=== PATIENT | female | born 1970 | race Two or more races ===

== ENCOUNTER 2024-09-27 09:10 | Outpatient (RCR) | payer MEDICAID, SELFPAY ==
--- NOTE | 2024-09-27 09:38 | PT.OIERPT ---
PT OP Initial Eval Patient Information Outpatient Physical Therapy Treatment Date: 09/27/24 Visit Reasons: back and leg pain Medical Diagnosis: M76.31 Treatment Dx #1: R LE pain Start of Care: 09/27/24 Date of Onset: 1 month ago Smoking Status Smoking Status: Never smoker Initial Assessment Subjective: Pt is 54 yr old ukrainian speaking female who reports R LE pain since being in the same position while gardening. She points to he anterior thigh as site of pain. The pain is less now but it hurts to walk>15 mins and lifting heavy things >30 lbs like to lift grandkids. PMH: venous stasis Imaging: none Pt goal: less R LE pain Objective: Trunk ArOM: ? B SB 50% of normal with pain ? Extension: 20% with pain around L4-5, L5-S1 ? Flexion: 10 from floor with LBP ? B rotation: 60% with pain ? TTP: moderate paraspinals L5-S1 ? HALI's: posterior leg pain Assessment: Pt presentation consistent with referring Dx of R SI joint dysfunction. Pt may benefit from skilled therapy and has fair rehab potential to meet goals. The LE pain with ambulating more than 15' is likely due to venous stasis and edema as well as the SI joint pain. Short Term and Senior Living Goals 1. Ind with HEP ? 2. Improved sitting/standing tolerance to 30 minutes with <=4/10 LBP ? 3. Decreased lower paraspinal TTP from mod to min 4. Improved HH chore tolerance to at least 30 minutes with <=3/10 LBP and no ?increase in LE ssx Treatment Plan Pt has 1 Rx session authorized and will learn HEP and then D/C ? 1. Manual therapy ? 2. Therex ? 3. Modalities as indicated, moist heat, ice, estim, mechanical traction Frequency and Duration: 1 Rx session Certification Dates: 09/27/24 to 10/26/24 Procedure Charges OP PT Eval Mod Complex 30 minutes: Yes
--- NOTE | 2024-09-28 16:20 | PT.ODS1RPT ---
PT OP Progress/Discharge Note Date of Service: 09/28/24 Progress Note/DC Note Progress Note/Discharge Note: DC Note Patient Information Visit Reasons: back and leg pain Service Continue Service or Discharge: Discharge Discharge Date: 09/28/24 Status Subjective: Pt called to say she doesn't think therapy will help and she wants to D/C Objective: No Rx no charges Assessment: Pt came to the evaluation and then called to D/C Plan: Self-D/C
== END 2024-10-10 23:59 | disposition home or self-care (01) ==
LOC: CPTX 09:10
PROVIDERS: PCP Family Medicine; Referring Provider Family Medicine; Visit Provider Family Medicine
DX: M79.604 Pain in right leg (principal); M76.31 Iliotibial band syndrome, right leg
CPT/HCPCS: 97162